=== PATIENT | male | born 1950 | race African-American/Black ===

== ENCOUNTER 2016-08-19 21:37 | Inpatient (IN) | payer MEDICARE ==
[~2016-08-19] VITALS: Ht 188 cm; Wt 80.7 kg
[2016-08-19] MEDS ORDERED: ONDANSETRON HCL 4MG/2ML VIAL IV STA (22:40)
[2016-08-19] MEDS ORDERED: ZOLPIDEM TARTRATE 5MG TABLET PO PRN (23:00)
[2016-08-19] MEDS ORDERED: NA PHOS,M-B/NA PHOS,DI-BA ENEMA 118ML PR PRN (23:00)
[2016-08-19] MEDS ORDERED: NITROGLYCERIN 0.4MG TABLET SL SL PRN (23:00)
[2016-08-19] MEDS ORDERED: TRAMADOL 50MG TABLET PO PRN (23:00)
[2016-08-19] MEDS ORDERED: DIPHENHYDRAMINE 50MG/ML VIAL IV PRN (23:00)
[2016-08-19] MEDS ORDERED: ACETAMINOPHEN 325MG TABLET PO PRN (23:00)
[2016-08-19] MEDS ORDERED: IPRATROPIUM/ALBUTEROL 0.5-3(2.5)MG/3ML NEB INH PRN (23:00)
[2016-08-19] MEDS ORDERED: CLONIDINE 0.1MG TABLET PO PRN (23:00)
[2016-08-19] MEDS ORDERED: LORAZEPAM 2MG/ML CPJ IV PRN (23:00)
[2016-08-19] MEDS ORDERED: DOCUSATE SODIUM 100MG CAPSULE PO PRN (23:00)
[2016-08-19] MEDS ORDERED: MORPHINE SULFATE 2 MG/ML CPJ (NOT FOR IM USE) IV PRN (23:00)
[2016-08-19] MEDS ORDERED: MAGNESIUM/ALUMINUM HYDROXIDE/SIMETHICONE 30ML UDC PO PRN (23:00)
[2016-08-19 23:35] LABS: HEMATOCRIT. 27.7 % (42.0-52.0); MEAN CORPUSCULAR HEMOGLOBIN 27.4 pg (28.0-32.0); MEAN CORPUSCULAR HGB CONC 32.4 g/dL (31.0-37.0); MEAN CORPUSCULAR VOLUME 84.6 fL (80.0-94.0); MEAN PLATELET VOLUME 7.8 fl (7.4-10.4); PLATELET 193 x1000/uL (130-400); RED BLOOD CELL COUNT 3.27 mill/uL (4.7-6.1); RED CELL DISTRIBUTION WIDTH 17.5 % (11.6-14.6); WHITE BLOOD COUNT 13.7 x1000/uL (4.5-11.0)
[2016-08-19 23:41] LABS: DIFFERENTIAL COMMENT 1
[2016-08-19 23:43] LABS: INR 1.2; PROTHROMBIN TIME 12.7 sec
[2016-08-19 23:55] LABS: ALANINE AMINOTRANSFERASE 106 IU/L (13-61); ALBUMIN 1.2 g/dL (3.4-5.0); ANION GAP 16; CARBON DIOXIDE 25 mEq/L (21-32); CHLORIDE 102 mEq/L (98-107); INDEX HEMOLYSI 1 (1-3); INDEX ICTERIC 2 (1-4); INDEX LIPEMIC 1 (1-3); TROPONIN I < 0.02 ng/mL (0.00-0.04); UREA NITROGEN BLOOD 35 mg/dL (7-21); eGFR > 60 mL/min (>60)
[2016-08-19 23:56] LABS: LACTIC ACID 2.3 mmol/L (0.4-2.0)
[2016-08-19 23:57] LABS: CLARITY URINE CLOUDY (CLEAR); COLOR URINE DARK YELLOW (YELLOW); GLUCOSE URINE NEGATIVE (NEGATIVE); KETONES URINE NEGATIVE (NEGATIVE); LEUKOCYTE ESTERASE URINE 2+ (NEGATIVE); NITRITE URINE NEGATIVE (NEGATIVE); OCCULT BLOOD URINE 3+ (NEGATIVE); PH URINE >=9.0 (4.5-8.0); PROTEIN URINE 1+ (NEGATIVE); SPECIFIC GRAVITY URINE 1.013 (1.005-1.030)
[2016-08-20] VITALS (7 sets, daily range): BP systolic 88–111; BP diastolic 51–87
[2016-08-20] MEDS ORDERED: CEFTRIAXONE 1 G PREMIX 50 ML IV ONE (00:15)
[2016-08-20 00:35] LABS: BACTERIA URINE 4+; RBC URINE 0-2 /hpf (0-2); SQUAMOUS EPITHELIAL CELL URINE FEW /lpf (RARE/1+)
[2016-08-20 02:19] LABS: PLATELET ESTIMATE NORMAL
[2016-08-20] MEDS: DEXT 5%/0.45% NACL 1000ML 1,000 ML IV SCH ×3 (02:39→11:39)
[2016-08-20] MEDS: PANTOPRAZOLE SODIUM 40 MG/VIAL IV SCH (08:56)
[2016-08-20] MEDS: ENOXAPARIN 40MG/0.4ML SYR SUBCUT SCH (08:56)
[2016-08-20] MEDS: LEVOFLOXACIN 500MG PREMIX 100 ML IV SCH (15:03)
[2016-08-21] VITALS (7 sets, daily range): BP systolic 88–108; BP diastolic 61–69
[2016-08-21] MEDS ORDERED: CEFTRIAXONE 1 G PREMIX 50 ML IV SCH (01:00)
[2016-08-21] MEDS: CEFTRIAXONE 1 G PREMIX 50 ML IV SCH (02:18)
[2016-08-21] MEDS: DEXT 5%/0.45% NACL 1000ML 1,000 ML IV SCH ×2 (02:19→09:17)
[2016-08-21] MEDS: PANTOPRAZOLE SODIUM 40 MG/VIAL IV SCH (09:06)
[2016-08-21] MEDS: ENOXAPARIN 40MG/0.4ML SYR SUBCUT SCH (09:07)
[2016-08-21] MEDS: LEVOFLOXACIN 500MG PREMIX 100 ML IV SCH (13:15)
[2016-08-22] MEDS: DEXT 5%/0.45% NACL 1000ML 1,000 ML IV SCH ×3 (00:42→22:26)
[2016-08-22] MEDS: CEFTRIAXONE 1 G PREMIX 50 ML IV SCH (00:43)
[2016-08-22 04:24] VITALS: BP 93/68
[2016-08-22 08:00] VITALS: BP 92/67
[2016-08-22] MEDS: ENOXAPARIN 40MG/0.4ML SYR SUBCUT SCH (08:54)
[2016-08-22] MEDS: PANTOPRAZOLE SODIUM 40 MG/VIAL IV SCH (08:54)
[2016-08-22 11:56] LABS: HEMATOCRIT. 26.8 % (42.0-52.0); HEMOGLOBIN. 8.6 g/dL (14.0-18.0); MEAN CORPUSCULAR HEMOGLOBIN 27.3 pg (28.0-32.0); MEAN CORPUSCULAR VOLUME 85.4 fL (80.0-94.0); MEAN PLATELET VOLUME 8.7 fl (7.4-10.4); PLATELET 127 x1000/uL (130-400); RED BLOOD CELL COUNT 3.14 mill/uL (4.7-6.1); RED CELL DISTRIBUTION WIDTH 17.7 % (11.6-14.6); WHITE BLOOD COUNT 14.2 x1000/uL (4.5-11.0)
[2016-08-22 12:00] VITALS: BP 99/65
[2016-08-22 12:00] LABS: DIFFERENTIAL COMMENT 1
[2016-08-22] MEDS: LEVOFLOXACIN 500MG PREMIX 100 ML IV SCH (12:07)
[2016-08-22 12:15] LABS: ANION GAP 16; CALCIUM 7.4 mg/dL (8.5-10.1); CARBON DIOXIDE 23 mEq/L (21-32); CHLORIDE 103 mEq/L (98-107); INDEX HEMOLYSI 1 (1-3); INDEX ICTERIC 1 (1-4); INDEX LIPEMIC 1 (1-3); UREA NITROGEN BLOOD 22 mg/dL (7-21); eGFR > 60 mL/min (>60)
[2016-08-22 13:49] LABS: ANISOCYTOSIS 1+; NUCLEATED RED BLOOD CELLS 1 /100 WBC; PLATELET ESTIMATE SLIGHTLY DECREASED
[2016-08-22 16:00] VITALS: BP 109/60
[2016-08-22 19:42] VITALS: BP 103/68
[2016-08-22 23:44] VITALS: BP 101/76
[2016-08-23] MEDS: CEFTRIAXONE 1 G PREMIX 50 ML IV SCH (00:33)
[2016-08-23 03:49] VITALS: BP 93/67
[2016-08-23] MEDS: DEXT 5%/0.45% NACL 1000ML 1,000 ML IV SCH ×2 (06:55→16:55)
[2016-08-23 08:00] VITALS: BP 102/69
[2016-08-23] MEDS: PANTOPRAZOLE SODIUM 40 MG/VIAL IV SCH (08:47)
[2016-08-23] MEDS: ENOXAPARIN 40MG/0.4ML SYR SUBCUT SCH (08:47)
[2016-08-23 12:00] VITALS: BP 108/65
[2016-08-23] MEDS: NITROFURANTOIN 100MG M/M CAPSULE PO SCH ×2 (12:25→20:42)
[2016-08-23 16:00] VITALS: BP 107/63
[2016-08-23 18:51] VITALS: BP 107/63
[2016-08-23 20:00] VITALS: BP 105/71
== END 2016-08-23 21:22 | DRG 871 ==
LOC: ER 22:23 → 6EST 23:11
PROVIDERS: ADMIT Internal Medicine; ATTEND Internal Medicine
DX: A41.9 Sepsis, unspecified organism (principal); E43 Unspecified severe protein-calorie malnutrition; N39.0 Urinary tract infection, site not specified; C18.9 Malignant neoplasm of colon, unspecified; C16.9 Malignant neoplasm of stomach, unspecified; K92.2 Gastrointestinal hemorrhage, unspecified; R64 Cachexia; D63.8 Anemia in other chronic diseases classified elsewhere; E86.0 Dehydration; I10 Essential (primary) hypertension; R74.0 Nonspecific elevation of levels of transaminase and lactic acid dehydrogenase [LDH]; K21.9 Gastro-esophageal reflux disease without esophagitis; R62.7 Adult failure to thrive; Z93.3 Colostomy status; Z91.010 Allergy to peanuts; Z91.018 Allergy to other foods; Z98.890 Other specified postprocedural states; Z68.22 Body mass index [BMI] 22.0-22.9, adult; Z90.49 Acquired absence of other specified parts of digestive tract
CPT/HCPCS: 36415; 71010; 80048; 80053; 81001; 83605; 84484; 85025; 85610; 87040; 87077; 87086; 87186; 93005; 93970; 96374; 96375; 99285; A6261; C9113; J0696; J1650; J1956; J2405